=== PATIENT | female | born 1970 | race Caucasian/White ===

== ENCOUNTER 2022-04-09 14:17 | Outpatient (CLI) | payer OTHER, SELFPAY ==
[2022-04-09 17:26] LABS: Chloride* 107 mmol/L (96-114)
[2022-04-09 17:27] LABS: Albumin* 4.7 g/dL (3.3-5.0); Potassium* 4.5 mmol/L (3.6-5.1); Sodium* 139 mmol/L (135-149)
[2022-04-09 17:30] LABS: Aspartate Amino Transferase* 28 U/L (12-35); Bilirubin Direct* 0.3 mg/dL (0.0-0.5); Bilirubin Total* 0.5 mg/dL (0.1-1.5); Blood Urea Nitrogen* 19 mg/dL (7-30); Carbon Dioxide* 25 mmol/L (20-32); Cholesterol* 193 mg/dL (90-199); Creatinine* 0.6 mg/dL (0.5-1.5); Estimated Glomerular Filt Rate 108 ml/min; Glucose* 91 mg/dL (60-115); Total Protein* 7.4 g/dL (6.0-8.3)
[2022-04-09 17:31] LABS: Alanine Aminotransferase* 22 U/L (4-35); Alkaline Phosphatase* 75 U/L (40-150); Calcium* 9.4 mg/dL (8.4-10.6); HDL Cholesterol* 76 mg/dL (>=50); LDL Cholesterol Calculated 105 mg/dL (<100); Triglycerides* 62 mg/dL (40-149)
== END 2022-04-09 14:18 | disposition home or self-care (01) ==
PROVIDERS: PCP Family Medicine; Visit Provider Family Medicine
DX: F10.11 Alcohol abuse, in remission (principal); I10 Essential (primary) hypertension; F41.9 Anxiety disorder, unspecified
CPT/HCPCS: 80048; 80061; 80076

== ENCOUNTER 2022-06-01 12:53 | Outpatient (CLI) | payer OTHER, SELFPAY ==
--- NOTE | 2022-06-01 13:00 | MR_ITS ---
[facility] [address] [address] Phone:?[phone] Fax:?[phone] Referring Physician Information: Sheldon Salazar M.D. [address] [facility] [address] Phone:?[phone] Fax:?[phone] Patient:Angela Rodgers D.O.B:?1970 Sex:?Female Phone:?[phone] [facility] MRN:?[id number] Exam Date:?06/01/2022 ? EXAM: MRI OF THE LEFT SHOULDER CLINICAL INFORMATION: The patient is a 52-year-old with left shoulder pain. Evaluate for tear. PRIOR SURGERY: None reported. COMPARISON STUDIES: There are no prior studies available for comparison. TECHNICAL INFORMATION: Using a 1.5T MR scanner and a localizing shoulder surface coil: 3.0 mm?coronal obliques: PD, T2, STIR 3.0 mm?sagittal obliques: PD, T2 3.0 mm?axials: PD, T2 FINDINGS: Articular/Extraarticular collections: Effusion: Mild. Subacromial/subdeltoid: Mild to moderate fluid is seen within the subacromial/subdeltoid bursa, in keeping with changes of bursitis. Subcoracoid: No evidence for bursitis. Osseous structures: Proximal humerus: No evidence for bony injury to the proximal humerus can be seen. There is no evidence for greater tuberosity fracture. No Hill-Sachs or reverse Hill-Sachs deformity is seen. Glenoid: No acute bony abnormality of the glenoid fossa or glenoid neck can be seen. Acromioclavicular joint: Mild changes of acromioclavicular joint arthrosis are present. Coracoacromial arch: Acromion morphology: Type II. No evidence for os acromiale. Acromiohumeral space: Mildly narrowed. Coracohumeral space: Within normal limits. Rotator cuff and deltoid: Supraspinatus: Moderate changes of supraspinatus tendinosis are present. There is no evidence for well-defined full or partial-thickness tearing. No atrophic changes of the supraspinatus muscle belly are identified. Infraspinatus: Moderate infraspinatus tendinosis can be seen. There is no evidence for full or partial-thickness tearing. No atrophic changes of the infraspinatus muscle belly are present. Teres minor: No evidence for tendinosis, tearing, or associated muscle belly atrophy. Subscapularis: Moderate subscapularis tendinosis can be seen. There is no evidence for full or partial-thickness tearing. No atrophic changes of the subscapularis muscle belly are noted. Deltoid: No evidence for strain or tearing. Biceps tendon: The intra-articular and biceps sulcus portions of the biceps tendon are normal. There is no evidence for rupture, dislocation, or subluxation. Glenohumeral joint and labrum: Articular Cartilage: No chondral injuries along the articular surfaces of the glenohumeral articulation can be seen. No osteoarthritic changes are identified. Labrum: The anterior, posterior, superior, and inferior portions of the labrum appear intact. No evidence for paralabral ganglion cyst formation can be seen. Capsular Soft Tissues: Thickening of the capsular structures of the glenohumeral articulation can be seen in the region of the axillary recess and rotator cuff interval. The findings are consistent with changes of adhesive capsulitis. CONCLUSION: 1. Moderate supraspinatus, infraspinatus, and subscapularis tendinosis. No full or partial-thickness rotator cuff tearing is seen. 2. Thickening of the capsular structures of the glenohumeral articulation, in keeping with adhesive capsulitis. 3. Mild to moderate subacromial/subdeltoid bursitis. 4. Mild acromioclavicular joint arthrosis. The acromiohumeral distance is mildly narrowed. 5. No osteoarthritic changes of the glenohumeral articulation are seen. 6. The glenoid labrum and long head of the biceps tendon appear intact. [facility] Electronically signed on 06/01/2022 3:38:00 PM by Ra Galvan M.D.
== END 2022-06-01 12:54 | disposition home or self-care (01) ==
LOC: MRI 12:55
PROVIDERS: PCP Family Medicine; Visit Provider Family Medicine
DX: M25.512 Pain in left shoulder (principal); M75.102 Unspecified rotator cuff tear or rupture of left shoulder, not specified as traumatic; M75.52 Bursitis of left shoulder; G89.29 Other chronic pain
CPT/HCPCS: 73221

== ENCOUNTER 2022-07-06 11:24 | Outpatient (CLI) | payer OTHER, SELFPAY | END 2022-07-06 11:25 | disposition home or self-care (01) | LOC: NFLDREF 11:26 | PROVIDERS: PCP Family Medicine; Visit Provider Registered Nurse | DX: N95.9 Unspecified menopausal and perimenopausal disorder (principal); R93.89 Abnormal findings on diagnostic imaging of other specified body structures; N83.201 Unspecified ovarian cyst, right side | CPT/HCPCS: 83001 ==

== ENCOUNTER 2022-07-06 12:30 | Outpatient (CLI) | payer OTHER, SELFPAY ==
--- NOTE | 2022-07-06 13:00 | CRLHL7_ITS ---
For Patients: As a result of the Century Cures Act, medical imaging exams and procedure reports are released immediately into your electronic medical record. You may view this report before your referring provider. If you have questions, please contact your health care provider. CLINICAL HISTORY: Postmenopausal bleeding TECHNIQUE: Real time, hernandez scale images were acquired of the pelvis using a transabdominal and transvaginal approach. Color Doppler analysis was performed of the ovaries. FINDINGS: The uterus measures 9.8 x 4.5 x 7.7 centimeters. 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 The right endometrial stripe measures 3 millimeters the left endometrial complex measures 1. 7 centimeters and appears thickened and heterogeneous in appearance. Left ovary is not seen. Right ovary measures 3.5 x 1.9 x 2.3 centimeters. Right ovarian cyst. Normal blood flow to the right ovary. Small amount of free fluid in the pelvis. 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 The left endometrial complex is thickened and heterogeneous in appearance measuring 1.7 centimeters recommend tissue sampling. Right ovarian cyst consider follow-up ultrasound in 1 year. Dictated by Sanna Box MD @ 07/06/2022 1:27:53 PM ADDENDUM: A right ovarian cyst measures 2 x 1.2 x 1.8 cm. The report remains unchanged. The image of the cyst is on image 38 of 40. Sanna Box M.D. Diagnostic/Breast Radi[facility] TKP:norman D& Transcribed: 4:58 p.m. (Electronically Signed)
== END 2022-07-06 12:31 | disposition home or self-care (01) ==
PROVIDERS: PCP Family Medicine; Visit Provider Registered Nurse
DX: N95.0 Postmenopausal bleeding (principal); N83.201 Unspecified ovarian cyst, right side; R93.89 Abnormal findings on diagnostic imaging of other specified body structures
CPT/HCPCS: 76830; 76856

== ENCOUNTER 2022-07-23 07:09 | Day surgery (SDC) | payer OTHER, SELFPAY ==
[2022-07-23 07:48] VITALS: BMI 23.1
[2022-07-23 07:54] VITALS: BP 113/76; PULSE 64; RESP 16; TEMP 36.3; O2SAT 99
[2022-07-23 07:58] LABS: Hemoglobin* 13.6 gm/dL (12.0-16.0)
[2022-07-23 08:07] LABS: Ur HCG Qualitative* Negative (Negative)
[2022-07-23] MEDS: LACTATED RINGERS 1000 ML 1,000 ML 100 ML IV (08:12)
[2022-07-23] MEDS: SODIUM CHLORIDE 0.9 % (FLUSH) 10 ML SYRINGE IVF (08:12)
--- NOTE | 2022-07-23 08:40 | W.ANESCHARGE ---
Anesthesia Charges Start Date/Time Anesthesia Start Date: 07/23/22 Anesthesia Start Time: 09:08 Stop Date/Time Anesthesia Stop Date: 07/23/22 Anesthesia Stop Time: 09:53
[2022-07-23 08:54] LABS: TSH With Reflex to FT4* 0.876 uIU/mL (0.270-4.200)
[2022-07-23] MEDS: BUPIVACAINE 0.5% 30 ML 10 ML INJECTION (09:27)
--- NOTE | 2022-07-23 09:51 | P.GYNPRC_ITS ---
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 Postop diagnosis: Abnormal uterine bleeding, bicornuate uterus Name of procedure: Hysteroscopy, dilation and curettage Surgeon: Long Supervisory Investigative Specialist: None Complications: None EBL: 5mL Drains: None Findings: Bimanual exam: Anteverted uterus of about 9cm, irregular contour, no adnexal masses. Intrauterine cavity: Long cervix, bicornuate uterus, bilateral endometrial stripes looked moderately thin even a bit atrophic. Bilateral cornual openings seen. Patient was taken to the OR were MAC anesthesia was administered without difficulty. She was placed in the dorsal lithotomy position with Ojsh type stirrups. Patient was then prepared and draped in the normal sterile fashion. An exam under anesthesia as described above. In and Out catheter utilized to drain the bladder. A bivalved speculum was inserted in the posterior aspect of the vagina. 0.5% Marcaine was injected at 2 and 11 o'clock a total of about 5mL utilized. A single-tooth tenaculum was used to grasp the anterior lip of the cervix. The cervical os was sequentially dilated to accommodate the 5 mm TrueClear hysteroscope using Hegar dilators. A 5 mm 30 degree TrueClear hyster oscope was introduced under direct visualization, and the uterus was distended with normal saline. Findings as above. Soft tissue incisor blade from TrueClear hysteroscope system was introduced under direct visualization and endometrial curettings performed in both endometrial cavities. Hysteroscope removed under direct visualization. Tenaculum was removed from the cervix and good hemostasis was noted at puncture sites. Patient tolerated the procedure well. Instrument and sponge counts were correct x2. The patient was awakened from MAC anesthesia and taken to the recovery room in a stable condition. The patient will go home after recovering from anesthesia and meeting all the criteria for discharge. She was given instruction regarding follow-up visit in 2 weeks at [facility] and instructions for pain medication. Fluid deficit: 150mL
[2022-07-23 09:55] VITALS: BP 111/67; PULSE 73; RESP 16; TEMP 36.2; O2SAT 99
--- NOTE | 2022-07-23 09:55 | W.ANESCHARGE ---
Anesthesia Charges Start Date/Time Anesthesia Start Date: 07/23/22 Anesthesia Start Time: 09:08 Stop Date/Time Anesthesia Stop Date: 07/23/22 Anesthesia Stop Time: 09:53
[2022-07-23 10:10] VITALS: BP 115/72; PULSE 77; RESP 16; TEMP 36.2; O2SAT 99
--- NOTE | 2022-07-23 11:55 | SUR.OPER ---
deficit was 150 ml
== END 2022-07-23 10:30 | disposition home or self-care (01) ==
PROVIDERS: PCP Family Medicine; Visit Provider Obstetrics & Gynecology
PROC: 0UDB8ZZ Extraction of Endometrium, Via Natural or Artificial Opening Endoscopic (ICD-10-PCS; CPT 58558; principal; 2022-07-23 09:00)
DX: N93.8 Other specified abnormal uterine and vaginal bleeding (principal); R93.89 Abnormal findings on diagnostic imaging of other specified body structures; Q51.3 Bicornate uterus
CPT/HCPCS: 58558; 00940; 00952; 36415; 81025; 84443; 85018; J1100; J1885; J2250; J2405; J2704; J3010; J3490; J7120